=== PATIENT | female | born 1970 | race African-American/Black ===

== ENCOUNTER → 2018-03-02 | Outpatient (CLI) | payer OTHER | LOC: HYPER 06:55 | DX: L89.313 Pressure ulcer of right buttock, stage 3 (principal); S90.821A Blister (nonthermal), right foot, initial encounter; N19 Unspecified kidney failure; I50.9 Heart failure, unspecified; G35 Multiple sclerosis; M62.82 Rhabdomyolysis; E43 Unspecified severe protein-calorie malnutrition; A41.9 Sepsis, unspecified organism; Z91.81 History of falling; X58.XXXA Exposure to other specified factors, initial encounter; Y93.89 Activity, other specified; Y92.89 Other specified places as the place of occurrence of the external cause; Y99.8 Other external cause status ==

== ENCOUNTER → 2019-10-03 | Outpatient (CLI) | payer OTHER | LOC: HYPER 08:25 | DX: L89.313 Pressure ulcer of right buttock, stage 3 (principal); L89.892 Pressure ulcer of other site, stage 2; A41.9 Sepsis, unspecified organism; E43 Unspecified severe protein-calorie malnutrition; I50.9 Heart failure, unspecified; G35 Multiple sclerosis; N19 Unspecified kidney failure; R60.0 Localized edema; M62.82 Rhabdomyolysis ==

== ENCOUNTER → 2020-06-24 | Outpatient (CLI) | payer OTHER | LOC: HYPER 13:00 | PROVIDERS: ATTEND Emergency Medicine | DX: L89.892 Pressure ulcer of other site, stage 2 (principal); I50.9 Heart failure, unspecified; G35 Multiple sclerosis; M62.82 Rhabdomyolysis ==

== ENCOUNTER → 2020-07-17 | Outpatient (CLI) | payer OTHER | LOC: HYPER 11:03 | PROVIDERS: ATTEND Emergency Medicine | DX: L89.892 Pressure ulcer of other site, stage 2 (principal); G35 Multiple sclerosis; I50.9 Heart failure, unspecified; M62.82 Rhabdomyolysis ==

== ENCOUNTER → 2020-09-03 | Outpatient (CLI) | payer OTHER | LOC: HYPER 14:39 | PROVIDERS: ATTEND Emergency Medicine | DX: L89.892 Pressure ulcer of other site, stage 2 (principal); G35 Multiple sclerosis; I50.9 Heart failure, unspecified; R53.1 Weakness; M62.82 Rhabdomyolysis ==

== ENCOUNTER → 2020-10-01 | Outpatient (CLI) | payer OTHER | LOC: HYPER 11:10 | PROVIDERS: ATTEND Emergency Medicine | DX: L89.892 Pressure ulcer of other site, stage 2 (principal); G35 Multiple sclerosis; I50.9 Heart failure, unspecified; R53.1 Weakness; M62.82 Rhabdomyolysis ==

== ENCOUNTER → 2020-12-24 | Outpatient (CLI) | payer OTHER | LOC: HYPER 14:47 | PROVIDERS: ATTEND Emergency Medicine | DX: L89.892 Pressure ulcer of other site, stage 2 (principal); L03.115 Cellulitis of right lower limb; G35 Multiple sclerosis; I50.9 Heart failure, unspecified; R53.1 Weakness; R21 Rash and other nonspecific skin eruption; M62.82 Rhabdomyolysis ==

== ENCOUNTER → 2021-02-16 | Outpatient (CLI) | payer OTHER | LOC: HYPER 11:46 | PROVIDERS: ATTEND Emergency Medicine | DX: L89.892 Pressure ulcer of other site, stage 2 (principal); L03.115 Cellulitis of right lower limb; R21 Rash and other nonspecific skin eruption; R53.1 Weakness; G35 Multiple sclerosis; I50.9 Heart failure, unspecified; M62.82 Rhabdomyolysis ==